=== PATIENT | female | born 1965 | race Caucasian/White ===

== ENCOUNTER 2017-03-14 15:11 | Emergency (ER) | payer OTHER ==
[~2017-03-14] VITALS: Ht 170.2 cm; Wt 56.7 kg
[2017-03-14 16:10] LABS: ABSOLUTE NEUTROPHILS 3.6 thou/uL (1.4-8.2); EOSINOPHILS 0.7 % (0.0-3.0); HEMATOCRIT 41.2 % (37.0-47.0); HEMOGLOBIN 13.9 gm/dL (12.0-15.0); LYMPHOCYTES 23.9 % (24.0-44.0); MANUAL DIFF NO; MCH 33.1 pg (26.0-34.0); MCHC 33.8 g/dL (28.0-37.0); PLATELET COUNT 303 thou/uL (150-400); POLYS 64.4 % (36.0-66.0); RBC 4.21 mil/uL (4.20-5.00); RDW 14.2 % (10.5-14.5); WBC 5.6 thou/uL (4.0-11.0)
[2017-03-14 16:19] LABS: CALCIUM 9.6 mg/dL (8.5-10.1); CREATININE 0.8 mg/dL (0.6-1.0); POTASSIUM 3.8 mmol/L (3.5-5.1)
[2017-03-14] MEDS ORDERED: ALLEGRA-D 12 H1 EAC2 PO (16:21)
[2017-03-14] MEDS ORDERED: AMBIEN 5 MG TABL5 M1 PO (16:21)
[2017-03-14] MEDS ORDERED: ATIVAN1 MG PO (16:32)
[2017-03-14] MEDS ORDERED: LEXAPRO 10 MG T10 M1 PO (16:32)
[2017-03-14 17:09] VITALS: BP 131/88
== END 2017-03-14 17:11 | disposition home or self-care (01) ==
LOC: ER 15:11
PROVIDERS: Physician Assistant
DX: F41.9 Anxiety disorder, unspecified (principal); F43.10 Post-traumatic stress disorder, unspecified; F10.99 Alcohol use, unspecified with unspecified alcohol-induced disorder; Z88.8 Allergy status to other drugs, medicaments and biological substances